=== PATIENT | female | born 1970 | race Caucasian/White ===

== ENCOUNTER 2018-04-05 04:56 | Day surgery (SDC) | payer OTHER ==
[2018-04-05 06:03] LABS: ADD MAN DIFF? NO
[2018-04-05] MEDS: SOD CHLORIDE 0.9% 1,000 ML IV (06:04)
[2018-04-05] MEDS: ACETAMINOPHEN 325 MG TAB PO ×2 (06:04→06:05)
[2018-04-05 06:06] LABS: BASOPHIL # 0.1 10^3/ul (0.0-0.1); BASOPHILS % 0.9 % (0.0-2.0); EOSINOPHILS # 0.3 10^3/ul (0.0-0.5); EOSINOPHILS % 4.1 % (0.0-7.0); HEMATOCRIT 39.5 % (37.0-47.0); HEMOGLOBIN 12.4 g/dl (12.0-16.0); LYMPHOCYTES # 1.8 10^3/ul (0.8-2.9); LYMPHOCYTES % 26.7 % (15.0-51.0); MEAN CORPUSCULAR HGB CONC 31.4 g/dl (32.0-37.0); MEAN CORPUSCULAR VOLUME 82.8 fl (82.0-101.0); MEAN PLATELET VOLUME 11.5 fl (7.4-10.4); MONOCYTE # 0.4 10^3/ul (0.3-0.9); MONOCYTES % 6.2 % (0.0-11.0); NEUTROPHIL # 4.2 10^3/ul (1.6-7.5); NEUTROPHILS % 61.7 % (39.0-77.0); PLATELET COUNT 235 10^3/UL (140-415); RED BLOOD COUNT 4.77 10^6/ul (4.20-5.40); RED CELL DISTRIBUTION WIDTH 17.6 % (11.5-14.5)
[2018-04-05 06:06] LABS: WHITE BLOOD COUNT 6.8 10^3/ul (4.8-10.8)
[2018-04-05 07:33] LABS: URINE BLOOD (Dip) POC 2+ (NEGATIVE); URINE GLUCOSE (Dip) POC Negative (NEGATIVE); URINE KETONES (Dip) POC Negative (NEGATIVE); URINE LEUKOCYTE EST (Dip) POC Negative (NEGATIVE); URINE NITRITE (Dip) POC Negative (NEGATIVE); URINE TOTAL PROTEIN POC Negative (NEGATIVE)
[2018-04-05] MEDS ORDERED: MIDAZOLAM 1 MG/ML 2 ML INJ (12:30)
[2018-04-05] MEDS ORDERED: LIDOCAINE 2% (SDV) 5 ML INJ (12:30)
[2018-04-05] MEDS ORDERED: PROPOFOL 20 ML (12:30)
[2018-04-05] MEDS ORDERED: CEFAZOLIN 1 GM INJ (12:36)
[2018-04-05] MEDS ORDERED: ONDANSETRON 4 MG INJ (12:36)
[2018-04-05] MEDS ORDERED: KETOROLAC 30 MG INJ IV (13:30)
[2018-04-05] MEDS ORDERED: HYDROmorphONE 1 MG/5 ML IV SYRINGE IV (13:30)
== END 2018-04-05 15:19 | disposition home or self-care (01) ==
LOC: FTE 04:56 → SDS 11:07
DX: O01.0 Classical hydatidiform mole (principal); Z87.891 Personal history of nicotine dependence
CPT/HCPCS: 36415; 71045; 76801; 76817; 81003; 84702; 85025; 86900; 86901; 88305; 88342; 99285-25

== ENCOUNTER 2019-06-01 06:51 | Emergency (ER) | payer OTHER ==
[2019-06-01] MEDS: KETOROLAC 30 MG INJ IM (07:30)
== END 2019-06-01 08:41 | disposition home or self-care (01) ==
LOC: FTE 08:41
DX: M25.512 Pain in left shoulder (principal)
CPT/HCPCS: 73030; 81025; 96372; 99284-25